=== PATIENT | female | born 1965 | race African-American/Black ===

== ENCOUNTER 2024-08-31 03:37 | Emergency (ER) | payer MEDICAID ==
[~2024-08-31] VITALS: Ht 162.6 cm; Wt 79.0 kg
[~2024-08-31 03:37] MED LIST: ALPR2TAB97 PO; GABA-532 PO; KEPPSOL GT; METO-411 PO; SERT100T PO
[2024-08-31 03:54] VITALS: TEMP 98.2; O2SAT 100
[2024-08-31] MEDS: DEXAMETHASONE 10 MG/ML VIAL IM ONE (05:05)
[2024-08-31 05:16] VITALS: BP 181/93; PULSE 67; RESP 16; O2SAT 100
== END 2024-08-31 05:17 | disposition home or self-care (01) ==
LOC: ER 03:37
DX: L02.511 Cutaneous abscess of right hand (principal); I10 Essential (primary) hypertension; Z88.1 Allergy status to other antibiotic agents; Z79.899 Other long term (current) drug therapy
CPT/HCPCS: 96372; 99283; J1100; Z7610